=== PATIENT | female | born 1940 | race Caucasian/White ===

== ENCOUNTER 2016-05-18 15:12 | Emergency (ER) | payer OTHER ==
[~2016-05-18] VITALS: Ht 142.2 cm; Wt 120.2 kg
[~2016-05-18 15:12] MED LIST: DIOVAN 40 MG40 MG PO; DOXEPIN50 MG PO; GLUCOVANCE 5 MG1 TAB PO; JANUVIA 50MG50 MG PO; PRAVASTATIN SOD40 MG PO; VERAPAMIL HCL120 M2 PO
--- NOTE | 2016-05-18 18:02 | ED AMS/SEIZURE/WEAK/DIZZY ---
History of Present Illness General Chief Complaint: Dizziness Stated Complaint: PT HAS BEEN DIZZY FOR THREE DAYS AND VOMITING Source: patient, family, old records Exam Limitations: no limitations Vital Signs & Intake/Output Vital Signs & Intake/Output Vital Signs Date Time Temp Pulse Resp B/P Pulse O2 O2 Flow FiO2 Ox Delivery Rate 05/18 2156 98.9 72 20 158/70 95 Room Air 05/18 1946 98.2 72 20 160/70 94 Room Air 05/18 1539 98.9 72 20 160/71 94 Room Air ED Intake and Output 05/19 0000 05/18 1200 Intake Total 150 Output Total Balance 150 Intake, IV 150 Patient 265 lb Weight Allergies Coded Allergies: meperidine (From DEMEROL) (Intermediate, NAUSEA 05/18/16) Reconcile Medications Alprazolam 0.5 MG TABLET 1 TAB PO BID ANXIETY (Reported) Aspirin (Ecotrin*) 81 MG TABLET.DR 1 TAB PO DAILY HEART/BLOOD (Reported) Cyanocobalamin (Vitamin B-12) (Cyanocobalamin Injection) 1,000 MCG/ML VIAL 1 ML IM Q30D SUPPLEMENT (Reported) Doxepin HCl 10 MG/ML ORAL.CONC 50 MG PO QPM MENTAL HEALTH (Reported) Empagliflozin (Jardiance) 10 MG TABLET 1 TAB PO DAILY DM (Reported) Gabapentin 100 MG CAPSULE 1 CAP PO TID NERVE PAIN (Reported) Glipizide 5 MG TABLET 2 TAB PO BID DM (Reported) Hydrocodone/Acetaminophen (Hydrocodon-Acetaminophen 5-325) 5 MG-325 MG TABLET 1 TAB PO TID PRN PAIN (Reported) Lidocaine HCl (Lidocaine) 5 % OINT...G. 1 LONNIE TOP TID SHOULDERS - BOTH ( Reported) Linagliptin (Tradjenta) 5 MG TABLET 1 TAB PO DAILY DM (Reported) Pravastatin Sodium 40 MG TABLET 1 TAB PO QPM CHOLESTEROL (Reported) Valsartan/Hydrochlorothiazide (Valsartan-Hctz 160-12.5 MG Tab) 160 MG-12.5 MG TABLET 1 TAB PO DAILY BP (Reported) Verapamil HCl (Verapamil ER) 120 MG TABLET.ER 1 TAB PO BID BP (Reported) Triage Note: TRIAGE: PT TO ER WITH C/C DIZZY, N/V SINCE SATURDAY AFTER HAVING PAIN SHOT IN BACK AT PAIN MANAGEMENT IN [place]. HAS CHRONIC BACK PAIN AT BASELINE R/T ARTHRITIS AND SPINAL STENOSIS. Triage Nurses Notes Reviewed? yes HPI: Patient is a 75-year-old female presents complaining of dizziness. Dizziness onset 3 days ago. Dizziness has been continuous is mild at rest, severe with changing positions. Dizziness is a room spinning sensation. Patient reports she had vertigo a few years ago that felt similar, her previous episode improved with meclizine. Patient has been taking meclizine with no improvement. One episode of vomiting yesterday. Mild nausea currently. Nausea worsens when dizziness worsens. Patient had an episode of shortness of breath earlier today when the dizziness was severe. No dyspnea currently. Denies headache, chest pain, palpitations. (SUSAN SILVERMAN) Past History Travel History Traveled to [place] past 21 day No Medical History Any Pertinent Medical History? 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 No (SUSAN SILVERMAN) Review of Systems Review of Systems Constitutional: Denies: chills, fever. EENTM: Denies: blurred vision. Respiratory: Denies: cough, short of breath. Cardiovascular: Denies: chest pain, syncope. GI: Reports: nausea, vomiting. Denies: abdominal pain. Genitourinary: Reports: no symptoms. Musculoskeletal: Reports: back pain (chronic). Denies: neck pain. Skin: Reports: no symptoms. Neurological/Psychological: Reports: see HPI. Hematologic/Endocrine: Reports: no symptoms. Immunologic/Allergic: Reports: no symptoms. (SUSAN SILVERMAN) Physical Exam Physical Exam General Appearance: well developed/nourished, alert, awake, obese Head: atraumatic, normal appearance Eyes: Bilateral: PERRL, EOMI (mild horizontal nystagmus). Ears, Nose, Throat: normal pharynx, normal ENT inspection, hearing grossly normal Neck: normal inspection, supple, full range of motion, no appreciable carotid bruit Respiratory: normal breath sounds, chest non-tender, no respiratory distress, lungs clear Cardiovascular: regular rate/rhythm (no appreciable murmur) Gastrointestinal: soft, non-tender Back: normal inspection, normal range of motion Extremities: normal range of motion Neurologic/Psych: awake, alert, oriented x 3 Skin: intact, normal color, warm/dry Lymphatic: no anterior cervical verónica Core Measures ACS in differential dx? No CVA/TIA Diagnosis: No Severe Sepsis Present: No Septic Shock Present: No (MERLY STANTON,SUSAN) Progress Differential Diagnosis: arrythmia, anemia, benign positional vertigo, CVA/stroke , electrolyte imbalance, intracranial Hem., intracranial mass/tumor, labrynthitis, meningitis, migraine KING, seizure disorder, subarachnoid Hem., vertebrobasilar insuff, cerebellar dysfunction/stroke Plan of Care: Orders Procedure Date/time Status Telemetry/Human Resources Temp 05/18 1803 Active FingerStick- Glucose 05/18 1803 Active TROPONIN LEVEL 05/18 1803 Complete COMPREHENSIVE METABOLIC PANEL 05/18 1803 Complete CBC WITHOUT DIFFERENTIAL 05/18 1803 Complete EKG 05/18 1803 Active Laboratory Tests 05/18/161814: CBC w Diff NO MAN DIFF REQ, RBC 4.44, MCV 90.4, MCH 29.3, RDW 15.9 H, MPV 10.8 H, Gran % 73.2, Lymphocytes % 21.9, Monocytes % 4.1, Eosinophils % 0.5, Basophils % 0.3, Absolute Granulocytes 5.1, Absolute Lymphocytes 1.5, Absolute Monocytes 0.3, Absolute Eosinophils 0, Absolute Basophils 0, PUBS MCHC 32.4 L 05/18/16 180: Anion Gap 10, Estimated GFR 48 L, BUN/Creatinine Ratio 30.9 H, Glucose 198 H, Calcium 10.0, Total Bilirubin 0.8, AST 36, ALT 34, Alkaline Phosphatase 92, Troponin I 0.02, Total Protein 8.1, Albumin 4.3, Globulin 3.8, Albumin/Globulin Ratio 1.[address] Singer. 05/18/2016 7:44:53 PM: Patient continues with dizziness with position changes. Minimal improvement with Valium and Reglan. Scopolamine patch ordered. CT scan ordered. 05/18/2016 9:48:40 PM: Patient reports feeling better after scopolamine patch. Patient ambulated with the use of her cane to the bathroom from room 5. Patient appears stable for discharge. Patient instructed to follow up with her primary doctor next week for further evaluation. (SUSAN SILVERMAN) Diagnostic Imaging: Viewed by Me: CT Scan. Discussed w/RAD: CT Scan. Radiology Impression: PATIENT: CHELSEA GRULLON PRESENT AGE: 75 PATIENT ACCOUNT NO: [id number] : 40 LOCATION: [facility] ORDERING PHYSICIAN: SUSAN STANTON SERVICE DATE: 05/18/16 EXAM TYPE: CAT - CT HEAD WO IV CONTRAST EXAMINATION: CT HEAD WITHOUT CONTRAST CLINICAL INFORMATION: Dizziness. COMPARISON: None TECHNIQUE: Contiguous axial imaging was performed from the skull base to vertex without intravenous administration of contrast. DLP: 600.71 mGy-cm FINDINGS: There is no evidence of acute intracranial hemorrhage or territorial infarction. No abnormal mass effect or midline shift is seen. [place] to white matter differentiation is well preserved. No extra-axial fluid collections are identified. There is atrophy with prominence of the ventricles and the sulci and hypodensity of the periventricular white matter due to chronic small vessel ischemic disease. There is vascular calcifications of the internal carotid arteries bilaterally. The osseous structures and soft tissues are normal. The mastoid air cells and visualized portions of the paranasal sinuses are well aerated. IMPRESSION: No acute intracranial pathology. DICTATED BY: ASHIA FIGUEROA MD DATE/TIME DICTATED:05/18/162044 CUSTOMER TRAINING SPECIALIST :SUNG DATE/TIME TRANSCRIBED:05/18/162044 CONFIDENTIAL, DO NOT COPY WITHOUT APPROPRIATE AUTHORIZATION. <Electronically signed in Other Vendor System> SIGNED BY: ASHIA FIGUEROA MD 05/18/162049 Initial ED EKG: sinus bradycardia approximately 55 bpm normal axis, normal intervals, no acute ST/T-wave abnormalities Rhythm Strip: normal sinus rhythm (SUSAN SILVERMAN) Departure Departure Time of Disposition: 2148 Disposition: HOME OR SELF CARE Condition: Stable Clinical Impression Primary Impression: Vertigo Referrals: Naz ADAN MD (PCP/Family) Additional Instructions: You may wear the scopolamine patch up to 72 hours. Follow-up with your doctor on Saturday or Saturday for further evaluation, call Saturday morning for appointment. Return to the emergency department if dizziness worsening, ambulating is becoming more difficult, numbness, weakness, and to stay hydrated, or worsening of symptoms. Departure Forms: Customer Survey General Discharge Information (SUSAN SILVERMAN) PA/HIGHWAY TRAFFIC CONTROL TECHNICIAN Co-Sign Statement Statement: ED Attending supervision documentation- [X] I saw and evaluated the patient. I have also reviewed all the pertinent lab results and diagnostic results. I agree with the findings and the plan of care as documented in the PA's/HIGHWAY TRAFFIC CONTROL TECHNICIAN's documentation. [X] I have reviewed the ED Record and agree with the PA's/HIGHWAY TRAFFIC CONTROL TECHNICIAN's documentation. [] Additions or exceptions (if any) to the PAs/HIGHWAY TRAFFIC CONTROL TECHNICIAN's note and plan are summarized below: [] (LOUIS VERA,BRYON)
[2016-05-18 18:34] LABS: ABSOLUTE BASOPHIL COUNT 0 /CUMM (0.0-0.2); ABSOLUTE EOSINOPHIL COUNT 0 /CUMM (0.0-0.7); ABSOLUTE GRANULOCYTE CT 5.1 /CUMM (1.4-6.5); ABSOLUTE LYMPH COUNT 1.5 /CUMM (1.2-3.4); ABSOLUTE MONOCYTE COUNT 0.3 /CUMM (0.10-0.60); BASOPHIL % 0.3 % (0.0-2.0); EOSINOPHIL % 0.5 % (0-5); GRANULOCYTE % 73.2 % (42.2-75.2); HEMATOCRIT 40.1 % (37-47); MEAN CORPUSCULAR HGB 29.3 PG (27.0-31.0); MEAN CORPUSCULAR HGB CONC 32.4 G/DL (33.0-37.0); MEAN CORPUSCULAR VOLUME 90.4 FL (81.0-99.0); MEAN PLATELET VOLUME 10.8 FL (7.4-10.4); PLATELET COUNT 126 /CUMM (130-400); RBC DISTRIBUTION WIDTH 15.9 % (11.5-14.5); RED BLOOD CELL CT 4.44 /CUMM (4.20-5.40)
[2016-05-18] MEDS ORDERED: GABAPENTIN100 M2 PO (18:40)
[2016-05-18] MEDS ORDERED: VALSARTAN-HCTZ1 EAC1 PO (18:40)
[2016-05-18] MEDS ORDERED: GLIPIZIDE5 M2 PO (18:40)
[2016-05-18] MEDS ORDERED: VERAPAMIL ER120 M1 PO (18:41)
[2016-05-18] MEDS ORDERED: PRAVASTATIN SOD40 M2 PO (18:41)
[2016-05-18] MEDS ORDERED: JARDIANCE10 M1 PO (18:42)
[2016-05-18] MEDS ORDERED: DOXEPIN HC10 MG/1 ML PO (18:42)
[2016-05-18] MEDS ORDERED: HYDROCODON-ACE1 EAC2 PO (18:42)
[2016-05-18] MEDS ORDERED: ASPIRIN EC81 M1 PO (18:43)
[2016-05-18] MEDS ORDERED: LIDOCAINE35.44 GM TOP (18:43)
[2016-05-18] MEDS ORDERED: ALPRAZOLAM0.5 M4 PO (18:43)
[2016-05-18] MEDS ORDERED: TRADJENTA5 M1 PO (18:44)
[2016-05-18] MEDS ORDERED: CYANOCOBAL1000 MCG/2 IM (18:45)
--- NOTE | 2016-05-18 20:50 | CT SCAN REPORT ---
EXAMINATION: CT HEAD WITHOUT CONTRAST CLINICAL INFORMATION: Dizziness. COMPARISON: None TECHNIQUE: Contiguous axial imaging was performed from the skull base to vertex without intravenous administration of contrast. DLP: 600.71 mGy-cm FINDINGS: There is no evidence of acute intracranial hemorrhage or territorial infarction. No abnormal mass effect or midline shift is seen. [place] to white matter differentiation is well preserved. No extra-axial fluid collections are identified. There is atrophy with prominence of the ventricles and the sulci and hypodensity of the periventricular white matter due to chronic small vessel ischemic disease. There is vascular calcifications of the internal carotid arteries bilaterally. The osseous structures and soft tissues are normal. The mastoid air cells and visualized portions of the paranasal sinuses are well aerated. IMPRESSION: No acute intracranial pathology.
[2016-05-18 21:56] VITALS: BP 158/70
== END 2016-05-18 22:17 ==
LOC: ERH 15:12
PROVIDERS: Physician Assistant
DX: R42 Dizziness and giddiness (principal)
CPT/HCPCS: 93005; 93010; 96365; 96375; J2765; J3360